=== PATIENT | female | born 1960 | race American Indian/Alaskan Native ===

== ENCOUNTER 2020-11-13 12:36 | Emergency (ER) | payer SELFPAY ==
[2020-11-13] MEDS ORDERED: KETOROLAC 30 MG/1 ML INJ IM ONE (13:29)
[2020-11-13] MEDS ORDERED: oxyCODONE /ACETAMINOPHEN 5-325MG TAB PO ONE (13:29)
--- NOTE | 2020-11-13 13:46 | Emergency Department Report ---
<JOAN HANCOCK - Last Filed: 11/13/20 15:08> ED Neuro Deficit HPI - General Chief Complaint: Headache Stated Complaint: (L) SIDE PAIN Time Seen by Provider: 11/13/20 12:42 Source: patient Mode of arrival: Wheelchair Limitations: No Limitations - History of Present Illness Initial Comments: CC: " I must be having a stroke. I am in such severe pain." HPI: This is a 6-year-old female with history of hypertension, CVA on aspirin and clopidogrel who presents with left-sided diffuse body pain for 1 week. She had similar symptoms when she had stroke 1 year ago. She denies paralysis, vision loss, difficulty walking, difficulty speaking. She has been compliant with both aspirin echocardiogram therapy. With previous stroke she had right- sided pain. Patient arrived via EMS. Patient laying with her left leg elevated relieves the pain. No trauma. -: Gradual, week(s) (1 week ago) Location: other (Left-sided body pain) History of same: Yes Place: home Severity: severe Quality: burning Improves With: none Worsens With: none Context: gradual onset Associated Symptoms: denies other symptoms Treatments Prior to Arrival: Aspirin, other (Patient took both aspirin and clopidogrel today) - Related Data Home Medications: Previous Rx's Medication Instructions Recorded Last Taken Type Cyclobenzaprine [Flexeril] 10 mg PO TID PRN #30 tablet 11/13/20 Unknown Rx Ibuprofen [Motrin 400 MG tab] 400 mg PO QID 5 Days #20 tablet 11/13/20 Unknown Rx oxyCODONE /ACETAMINOPHEN [Percocet 1 tab PO Q6HR PRN #15 tablet 11/13/20 Unknown Rx 5/325] Allergies/Adverse Reactions: Allergies Allergy/AdvReac Type Severity Reaction Status Date / Time No Known Allergies Allergy Unverified 11/13/20 12:41 ED Review of Systems Comment: All other systems reviewed and negative Constitutional: denies: fever, malaise Respiratory: denies: cough, shortness of breath Cardiovascular: denies: chest pain Gastrointestinal: denies: abdominal pain, nausea, vomiting Neurological: paresthesias ED Past Medical Hx - Past Medical History Previous Medical History?: Yes Hx CVA: Yes - Family History Family history: hypertension, vascular disease - Social History Smoking Status: Current Every Day Smoker Substance Use Type: Alcohol - Medications Home Medications: Home Medications Medication Instructions Recorded Confirmed Last Taken Type Cyclobenzaprine [Flexeril] 10 mg PO TID PRN #30 tablet 11/13/20 Unknown Rx Ibuprofen [Motrin 400 MG tab] 400 mg PO QID 5 Days #20 tablet 11/13/20 Unknown Rx oxyCODONE /ACETAMINOPHEN [Percocet 1 tab PO Q6HR PRN #15 tablet 11/13/20 Unknown Rx 5/325] ED Neuro Physical Exam - General Limitations: No Limitations General appearance: alert, in no apparent distress Suspected Stroke: No - Head Head exam: Present: atraumatic, normocephalic - Eye Eye exam: Present: normal appearance - ENT ENT exam: Present: mucous membranes moist - Neck Neck exam: Present: normal inspection - Respiratory Respiratory exam: Present: normal lung sounds bilaterally, rhonchi. Absent: respiratory distress - Cardiovascular Cardiovascular Exam: Present: regular rate, normal rhythm. Absent: systolic murmur, diastolic murmur, rubs, gallop - GI/Abdominal GI/Abdominal exam: Present: soft, normal bowel sounds. Absent: distended, tenderness, guarding, rebound - Extremities Exam Extremities exam: Present: normal inspection - Neurological Exam Neurological exam: Present: alert, oriented X3 - NIHSS Assessment Interval: Baseline 1a. Level of Consciousness: alert/keenly responsive 1b. LOC Questions: answers both correctly 1c. LOC Commands: performs tasks correctly 2. Best Gaze: normal 3. Visual: no visual loss 4. Facial Palsy: normal symmetrical movement 5b. Motor Arm Right: no drift 5a. Motor Arm Left: no drift 6a. Motor Leg Left: no drift 6b. Motor Leg Right: no drift 7. Limb Ataxia: absent 8. Sensory: normal 9. Best Language: no aphasia 10. Dysarthria: normal 11. Extinction/Inattention: no abnormality Total Score: 0 Stroke Severity: No Stroke Symptoms - Psychiatric Psychiatric exam: Present: normal affect, normal mood - Skin Skin exam: Present: warm, dry, intact, normal color. Absent: rash ED Course - Reevaluation(s) Reevaluation #1: 11/13/20 15:05 I reassessed patient, she now localizes left hip pain. I suspect patient has sciatica. She has vomited after receiving Percocet. Reevaluation #2: 11/13/20 15:06 I was informed the patient has been on the floor. Patient was able to get on the wheel chair without my assistance. Patient is rolling in bed. She is moving all 4 extremities. All extremities neurovascular tact. - Lab Data Result diagrams: 11/13/20 13:33 - Medical Decision Making 1. Sciatica: Patient has 1 week of left-sided pain now localized to the left hip. Potassium 3.3 treated to thiazide diuretic. However this level is mild enough to account for patient's severe pain. ED Disposition Clinical Impression: Sciatica of left side Disposition: DC-01 TO HOME OR SELFCARE Condition: Stable Instructions: Sciatica, [id number] Prescriptions: Cyclobenzaprine [Flexeril] 10 mg PO TID PRN #30 tablet PRN Reason: Muscle Spasm Ibuprofen [Motrin 400 MG tab] 400 mg PO QID 5 Days #20 tablet oxyCODONE /ACETAMINOPHEN [Percocet 5/325] 1 tab PO Q6HR PRN #15 tablet PRN Reason: Pain Referrals: GRANT EM MD [Staff Physician] - 3-5 Days NORIS OSPINA II, MD [Staff Physician] - 3-5 Days Forms: Work/School Release Form(ED) <LIZZETH BELLA - Last Filed: 11/13/20 21:18> ED Review of Systems ROS: Stated complaint: (L) SIDE PAIN Other details as noted in HPI ED Course Vital Signs 11/13/20 11/13/20 11/13/20 12:44 18:02 18:30 Temperature 98.6 F Pulse Rate 78 84 89 Respiratory 20 15 13 Rate Blood Pressure 141/89 Blood Pressure 147/96 141/94 [Right] O2 Sat by Pulse 98 94 95 Oximetry 11/13/20 11/13/20 18:39 19:00 Temperature Pulse Rate 96 H Respiratory 10 L Rate Blood Pressure 147/98 Blood Pressure [Right] O2 Sat by Pulse 95 100 Oximetry - Lab Data Result diagrams: 11/13/20 13:33 Lab Results 11/13/20 Range/Units 13:33 Sodium 141 (137-145) mmol/L Potassium 3.3 L (3.6-5.0) mmol/L Chloride 101.3 (98-107) mmol/L Carbon Dioxide 25 (22-30) mmol/L Anion Gap 18 mmol/L BUN 17 (7-17) mg/dL Creatinine 1.0 (0.6-1.2) mg/dL Estimated GFR > 60 ml/min BUN/Creatinine Ratio 17 % Glucose 100 (65-100) mg/dL Calcium 9.2 (8.4-10.2) mg/dL - Radiology Data LEFT HIP 2 VIEW(S) INDICATION / CLINICAL INFORMATION: hip pain COMPARISON: None available. FINDINGS: BONES / JOINT(S): No acute fracture or subluxation. Degenerative arthrosis both hips SOFT TISSUES: No significant abnormality. AD DITIONAL FINDINGS: None. LUMBAR SPINE 2 VIEWS INDICATION / CLINICAL INFORMATION: hip pain. COMPARISON: None available. FINDINGS: VERTEBRAE: No fracture. No significant malalignment. DISC SPACES:Moderately advanced discogenic degenerative disease L4-5. Mild/moderate discogenic degenerative disease L2-3 and L5-S1 FACET JOINTS:No significant abnormality. ADDITIONAL FINDINGS: Moderate vascular calcifications nonaneurysmal aorta IMPRESSION: 1. Degenerative disc disease lumbar spine CT head/brain wo con INDICATION / CLINICAL INFORMATION: 60 years Female; left side pain. TECHNIQUE: Routine CT head without contrast. All CT scans at this location are performed using CT dose reduction for ALARA by means of automated exposure control. COMPARISON: None. FINDINGS: BRAIN / INTRACRANIAL CONTENTS: No acute hemorrhage, mass effect, midline shift, hydrocephalus, or acute, large territorial infarct. No signs of significant atrophy or chronic infarct. No significant white matter abnormality seen. CRANIOCERVICAL JUNCTION: No significant abnormality. ORBITS: No significant abnormality of visualized orbits. SINUSES / MASTOIDS: Visualized paranasal sinuses and mastoid air cells are essentially clear. ADDITIONAL FINDINGS: Atherosclerotic disease is seen in the anterior circulation. IMPRESSION: 1. No focal mass, hemorrhage, hydrocephalus, or acute, large territorial infarct. - Medical Decision Making I was signed out this patient by my colleague at about 16:00. Patient came in with a 1 week history of left-sided body pain that was later found to be left low back pain with radiation down the hip and leg. Initially the patient had voiced concern that this kind of pain was consistent with her previous CVA without residual deficits. She had a CT scan of the head without contrast that did not show any hemorrhage or large vessel occlusion and with a 1 week history of this pain, if it was CVA, you would suspect to see changes on CT imaging. The patient is in was an NIH stroke scale of 0. She is seen moving all of her extremities and just complains of pain. Initially the patient was in room #34 but has been moved to bed 22 so she has a dedicated nurse, can be placed on monitoring, and can receive IV medications. Patient was given IV fluid, Zofran and morphine. She says that it made her slightly groggy but did not significantly decrease her pain. The patient was reevaluated again after receiving a dose of Dilaudid, as well as some IV fluid resuscitation, and the patient appears improved. She still complains of a throbbing sensation to the low back, hip and left leg, but her pain intensity has definitely decreased. At different points the patient appears to be resting comfortably. X-ray of the lumbar spine show some degenerative changes but no fracture, subluxation, or any other acute process. X-ray of the left hip does not show any fracture, dislocation, or any acute process. The patient is neurovascularly intact and appears safe for discharge home at this time. She was set up by my colleague for outpatient follow-up with primary care and neurosurgery. She has received prescriptions for ibuprofen, Flexeril and pain medication. I also discussed with the patient about using heat/cold. The patient understands that the muscle relaxer and pain medications are sedating and therefore cannot be taken prior to driving, working, being responsible for children, and cannot be mixed with alcohol of any quantity. She will return to the emergency department with any worsening of her symptoms or with any acute distress. Critical Care Time: No Critical care attestation.: If time is entered above; I have spent that time in minutes in the direct care of this critically ill patient, excluding procedure time. ED Disposition Is pt being admited?: No
[2020-11-13 14:46] LABS: BUN/Creatinine Ratio 17; Blood Urea Nitrogen 17 mg/dL (7-17); Calcium 9.2 mg/dL (8.4-10.2); Hemolysis Index 14
[2020-11-13] MEDS ORDERED: MORPHINE 4 MG/1 ML INJ IV ONE ×2 (15:06→17:13)
[2020-11-13] MEDS ORDERED: ONDANSETRON 4 MG/2 ML INJ IV ONE ×2 (15:06→17:14)
--- NOTE | 2020-11-13 16:35 | XRay Report ---
LEFT HIP 2 VIEW(S) INDICATION / CLINICAL INFORMATION: hip pain COMPARISON: None available. FINDINGS: BONES / JOINT(S): No acute fracture or subluxation. Degenerative arthrosis both hips SOFT TISSUES: No significant abnormality. ADDITIONAL FINDINGS: None. Signer Name: Romel Venegas MD Signed: 11/13/2020 4:30 PM Workstation Name: [id number]
--- NOTE | 2020-11-13 16:35 | XRay Report ---
LUMBAR SPINE 2 VIEWS INDICATION / CLINICAL INFORMATION: hip pain. COMPARISON: None available. FINDINGS: VERTEBRAE: No fracture. No significant malalignment. DISC SPACES:Moderately advanced discogenic degenerative disease L4-5. Mild/moderate discogenic degene rative disease L2-3 and L5-S1 FACET JOINTS:No significant abnormality. ADDITIONAL FINDINGS: Moderate vascular calcifications nonaneurysmal aorta IMPRESSION: 1. Degenerative disc disease lumbar spine Signer Name: Romel Venegas MD Signed: 11/13/2020 4:31 PM Workstation Name: [id number]
[2020-11-13] MEDS ORDERED: SODIUM CHLORIDE 0.9% 1000 ML 1,000 ML IV ONE (16:44)
--- NOTE | 2020-11-13 17:08 | Cat Scan Report ---
CT head/brain wo con INDICATION / CLINICAL INFORMATION: 60 years Female; left side pain. TECHNIQUE: Routine CT head without contrast. All CT scans at this location are performed using CT dos e reduction for ALARA by means of automated exposure control. COMPARISON: None. FINDINGS: BRAIN / INTRACRANIAL CONTENTS: No acute hemorrhage, mass effect, midline shift, hydrocephalus, or acu te, large territorial infarct. No signs of significant atrophy or chronic infarct. No significant whi te matter abnormality seen. CRANIOCERVICAL JUNCTION: No significant abnormality. ORBITS: No significant abnormality of visualized orbits. SINUSES / MASTOIDS: Visualized paranasal sinuses and mastoid air cells are essentially clear. ADDITIONAL FINDINGS: Atherosclerotic disease is seen in the anterior circulation. IMPRESSION: 1. No focal mass, hemorrhage, hydrocephalus, or acute, large territorial infarct. Signer Name: Alex Mcguire MD, III Signed: 11/13/2020 5:03 PM Workstation Name: [id number]
[2020-11-13] MEDS ORDERED: HYDROmorphone 1 MG/1 ML INJ IV ONE (17:39)
[2020-11-13 19:15] VITALS: BP 147/98
== END 2020-11-13 19:44 | disposition home or self-care (01) ==
LOC: ED 12:36
DX: M54.32 Sciatica, left side (principal); Z86.73 Personal history of transient ischemic attack (TIA), and cerebral infarction without residual deficits; F17.200 Nicotine dependence, unspecified, uncomplicated
CPT/HCPCS: 36415; 70450; 72100; 73502; 80048; 96361; 96372; 96374; 96375; 99285; J1170; J1885; J2270; J2405; J7030